=== PATIENT | female | born 1990 | race Caucasian/White ===

== ENCOUNTER → 2018-06-06 | Outpatient (REF) | payer OTHER ==
[~2018-06-06] MED LIST: ALB0.5 INH; AMO875 PO; BACDS PO; CIPR-214 PO; CIT20 PO; HYDR-3250 PO; IBU600 PO; KET10 PO; L-NO1TBD6 PO; LORA0.5T11 PO; MEL3 FT; MET10 PO; ONDA4TAB PO; ONDA4TAB9 PO; ONDA4TAB97 PO; PAN40 PO; PROM-110 PO; QUASENSE; RANI-445 PO; SULF1TAB24 PO
[2018-06-06 13:31] LABS: PLATELET COUNT, AUTOMATED 371 K/uL (150-450)
== END ==
PROVIDERS: ATTEND Family Medicine
DX: R05 Cough (principal)
CPT/HCPCS: 82040; 82247; 82310; 82374; 82435; 82565; 82947; 84075; 84132; 84155; 84295; 84450; 84460; 84520; 85025; 85379